=== PATIENT | male | born 2000 | race Caucasian/White ===

== ENCOUNTER 2018-06-20 11:52 | Emergency (ER) | payer OTHER ==
[2018-06-20] MEDS ORDERED: SODIUM CHLORIDE 0.9% 1,000 ML IV STA (12:52)
--- NOTE | 2018-06-20 13:18 | ED ---
Seizure HPI - General Chief Complaint: Seizure Stated Complaint: seizure Time Seen by Provider: 06/20/18 12:03 Source: patient, RN notes reviewed, old records reviewed Mode of arrival: EMS Limitations: no limitations - History of Present Illness Initial Comments: 18-year-old male presents for in terms a status post seizure. He had a total tonic clonic seizure lasting 3 minutes earlier this morning. Did not have the exact time. Patient was seizure was witnessed by girlfriend. He has had history of seizure disorder he certainly had Keppra and Vimpat. Patient reports that he takes medication as prescribed. Patient has had no other symptoms including fevers or chills. He has not had a seizure in the past 6 months. Denies any specific symptoms besides mild headache at this time as well as body aches. Patient states that he has had no head trauma. He does state that he had a seizure while he was laying in bed. - Related Data Home Medications Medication Instructions Recorded Confirmed QUEtiapine [SEROquel] 200 mg PO BID 06/20/18 06/20/18 levETIRAcetam [Keppra] 1,500 mg PO DIRECTED 06/20/18 06/20/18 levETIRAcetam [Keppra] 750 mg PO DIRECTED 06/20/18 06/20/18 levETIRAcetam [levETIRAcetam ER] 1,500 mg PO DAILY 06/20/18 06/20/18 levETIRAcetam [levETIRAcetam ER] 750 mg PO HS 06/20/18 06/20/18 Allergies Allergy/AdvReac Type Severity Reaction Status Date / Time No Known Allergies Allergy Verified 06/20/18 12:11 Review of Systems ROS Statement: Those systems with pertinent positive or pertinent negative responses have been documented in the HPI. ROS Other: All systems not noted in ROS Statement are negative. Past Medical History Past Medical History: No Reported History, Seizure Disorder History of Any Multi-Drug Resistant Organisms: None Reported Past Surgical History: No Surgical Hx Reported Past Psychological History: No Psychological Hx Reported Smoking Status: Never smoker Past Alcohol Use History: None Reported Past Drug Use History: Marijuana General Exam - General Exam Comments Initial Comments: well-appearing alert and oriented 18-year-old male. no acute distress. Limitations: no limitations General appearance: alert, in no apparent distress Head exam: Present: atraumatic Eye exam: Present: normal appearance, PERRL, EOMI. Absent: scleral icterus, conjunctival injection, periorbital swelling ENT exam: Present: normal exam, mucous membranes moist Neck exam: Present: normal inspection. Absent: tenderness, meningismus, lymphadenopathy Respiratory exam: Present: normal lung sounds bilaterally. Absent: respiratory distress, wheezes, rales, rhonchi, stridor Cardiovascular Exam: Present: regular rate, normal rhythm, normal heart sounds. Absent: systolic murmur, diastolic murmur, rubs, gallop, clicks GI/Abdominal exam: Present: soft, normal bowel sounds. Absent: distended, tenderness, guarding, rebound, rigid Extremities exam: Present: normal inspection, full ROM, normal capillary refill. Absent: tenderness, pedal edema, joint swelling, calf tenderness Back exam: Present: normal inspection Neurological exam: Present: alert, oriented X3, CN II-XII intact Psychiatric exam: Present: normal affect, normal mood Course Vital Signs 06/20/18 06/20/18 06/20/18 11:58 13:59 15:20 Temperature 97.3 F L 98 F Pulse Rate 94 87 79 Respiratory 18 18 16 Rate Blood Pressure 124/70 127/67 126/79 O2 Sat by Pulse 94 L 98 98 Oximetry 06/20/18 15:34 Temperature 98 F Pulse Rate 79 Respiratory 16 Rate Blood Pressure 126/79 O2 Sat by Pulse 98 Oximetry Medical Decision Making - Medical Decision Making 1-year-old male with history of seizures presents today with chief complaint of seizure-like activity this morning. Tonic-clonic seizure lasting 3 minutes. Patient denies the emergency department somewhat postictal. However this is been 5-6 hours after the actual certain seizure. Labwork was reviewed and unremarkable. Urine analysis is positive for TCAs, Patient doesn't that he is currently on amitriptyline. He also is positive for marijuana. For Patient and marijuana laced with other things could be causing 2. Patient advised that he cannot drive for 6 months post seizure. Advise close follow-up with neurologist. He may need to have his medications adjusted. I did order a Keppra level however this is an outpatient lab. Patient CT brain was normal. This time he otherwise feels well and his been eating and drinking emergency department. He likes be discharged home. Discussed return parameters. All questions answered return parameters were discussed. - Lab Data Result diagrams: 06/20/18 13:30 06/20/18 13:30 Lab Results 06/20/18 06/20/18 06/20/18 Range/Units 13:30 13:30 13:30 WBC 8.2 (4.0-11.0) k/uL RBC 5.67 (4.30-5.90) m/uL Hgb 16.3 (13.0-17.5) gm/dL Hct 48.5 (39.0-53.0) % MCV 85.6 (80.0-100.0) fL MCH 28.8 (25.0-35.0) pg MCHC 33.7 (31.0-37.0) g/dL RDW 12.5 (11.5-15.5) % Plt Count 208 (150-450) k/uL Neutrophils % 77 % Lymphocytes % 15 % Monocytes % 5 % Eosinophils % 2 % Basophils % 0 % Neutrophils # 6.3 (1.3-7.7) k/uL Lymphocytes # 1.3 (1.0-4.8) k/uL Monocytes # 0.4 (0-1.0) k/uL Eosinophils # 0.2 (0-0.7) k/uL Basophils # 0.0 (0-0.2) k/uL Sodium 139 (137-145) mmol/L Potassium 4.7 (3.5-5.1) mmol/L Chloride 109 H (98-107) mmol/L Carbon Dioxide 22 (22-30) mmol/L Anion Gap 8 mmol/L BUN 11 (9-20) mg/dL Creatinine 0.76 (0.66-1.25) mg/dL Est GFR (CKD-EPI)AfAm >90 (>60 ml/min/1.73 sqM) Est GFR (CKD-EPI)NonAf >90 (>60 ml/min/1.73 sqM) Glucose 85 (74-99) mg/dL Calcium 9.1 (8.4-10.2) mg/dL Total Bilirubin 0.5 (0.2-1.3) mg/dL AST 23 (17-59) U/L ALT 35 (21-72) U/L Alkaline Phosphatase 122 (38-126) U/L Total Protein 7.2 (6.3-8.2) g/dL Albumin 4.4 (3.5-5.0) g/dL Urine Opiates Screen Not Detected (NotDetected) Ur Oxycodone Screen Not Detected (NotDetected) Urine Methadone Screen Not Detected (NotDetected) Ur Propoxyphene Screen Not Detected (NotDetected) Ur Barbiturates Screen Not Detected (NotDetected) U Tricyclic Antidepress Detected H (NotDetected) Levetiracetam (3.0-60.0) ug/mL Ur Phencyclidine Scrn Not Detected (NotDetected) Ur Amphetamines Screen Not Detected (NotDetected) U Methamphetamines Scrn Not Detected (NotDetected) U Benzodiazepines Scrn Not Detected (NotDetected) Urine Cocaine Screen Not Detected (NotDetected) U Marijuana (THC) Screen Detected H (NotDetected) 06/20/18 Range/Units 13:30 WBC (4.0-11.0) k/uL RBC (4.30-5.90) m/uL Hgb (13.0-17.5) gm/dL Hct (39.0-53.0) % MCV (80.0-100.0) fL MCH (25.0-35.0) pg MCHC (31.0-37.0) g/dL RDW (11.5-15.5) % Plt Count (150-450) k/uL Neutrophils % % Lymphocytes % % Monocytes % % Eosinophils % % Basophils % % Neutrophils # (1.3-7.7) k/uL Lymphocytes # (1.0-4.8) k/uL Monocytes # (0-1.0) k/uL Eosinophils # (0-0.7) k/uL Basophils # (0-0.2) k/uL Sodium (137-145) mmol/L Potassium (3.5-5.1) mmol/L Chloride (98-107) mmol/L Carbon Dioxide (22-30) mmol/L Anion Gap mmol/L BUN (9-20) mg/dL Creatinine (0.66-1.25) mg/dL Est GFR (CKD-EPI)AfAm (>60 ml/min/1.73 sqM) Est GFR (CKD-EPI)NonAf (>60 ml/min/1.73 sqM) Glucose (74-99) mg/dL Calcium (8.4-10.2) mg/dL Total Bilirubin (0.2-1.3) mg/dL AST (17-59) U/L ALT (21-72) U/L Alkaline Phosphatase (38-126) U/L Total Protein (6.3-8.2) g/dL Albumin (3.5-5.0) g/dL Urine Opiates Screen (NotDetected) Ur Oxycodone Screen (NotDetected) Urine Methadone Screen (NotDetected) Ur Propoxyphene Screen (NotDetected) Ur Barbiturates Screen (NotDetected) U Tricyclic Antidepress (NotDetected) Levetiracetam <1.0 (3.0-60.0) ug/mL Ur Phencyclidine Scrn (NotDetected) Ur Amphetamines Screen (NotDetected) U Methamphetamines Scrn (NotDetected) U Benzodiazepines Scrn (NotDetected) Urine Cocaine Screen (NotDetected) U Marijuana (THC) Screen (NotDetected) 06/20/18 14:07 EKG is 3250 normal sinus rhythm normal EKG. Ventricular rate of 75 beats were minute. Daniela's 156 ms. QRS duration 94 4 ms. QT QTc is 370/422. - Radiology Data Radiology results: report reviewed No acute intracranial hemorrhage, mass effect, or midline shift seen. No significant change from prior. Disposition Clinical Impression: Seizure Disposition: HOME SELF-CARE Condition: Good Instructions: Recurrent Seizures in Adults (ED) Additional Instructions: Patient advised to continue medications. You need to follow-up with your neurologist. Patient should not drive for 6 months until seizure free. Return to emergency department if any alarming signs or symptoms occur. Is patient prescribed a controlled substance at d/c from ED?: No Referrals: Noam Shannon MD [Primary Care Provider] - 1-2 days Shena Cole MD [STAFF PHYSICIAN] - 1-2 days Time of Disposition: 15:09
[2018-06-20] MEDS ORDERED: ACETAMINOPHEN TAB 500 MG TAB PO STA (13:20)
[2018-06-20] MEDS ORDERED: SODIUM CHLORIDE 0.9% 1,000 ML IV SCH (13:30)
[2018-06-20 14:02] LABS: Amphetamine Screen,Urine Not Detected (NotDetected); Barbiturate Screen,Urine Not Detected (NotDetected); Benzodiazepines Screen,Urine Not Detected (NotDetected); Cocaine Screen,Urine Not Detected (NotDetected); Methadone Screen, Urine Not Detected (NotDetected); Opiate Screen,Urine Not Detected (NotDetected); Oxycodone Screen, Urine Not Detected (NotDetected); Phencyclidine Screen,Urine Not Detected (NotDetected); Tricyclic Antidepressant,Urine Detected (NotDetected); Urn Cannabinoid Scrn Detected (NotDetected)
[2018-06-20 14:12] LABS: ALT 35 U/L (21-72); AST 23 U/L (17-59); Albumin 4.4 g/dL (3.5-5.0); Alkaline Phosphatase 122 U/L (38-126); Anion Gap 8 mmol/L; Blood Urea Nitrogen 11 mg/dL (9-20); Calcium 9.1 mg/dL (8.4-10.2); Carbon Dioxide 22 mmol/L (22-30); Chloride 109 mmol/L (98-107); Glucose 85 mg/dL (74-99); Potassium 4.7 mmol/L (3.5-5.1); Sodium 139 mmol/L (137-145); Total Bilirubin 0.5 mg/dL (0.2-1.3); Total Protein 7.2 g/dL (6.3-8.2)
[2018-06-20 14:15] LABS: Basophils % (A) 0 %; Eosinophils # (A) 0.2 k/uL (0-0.7); Eosinophils % (A) 2 %; HCT 48.5 % (39.0-53.0); HGB 16.3 gm/dL (13.0-17.5); Lymphocytes # (A) 1.3 k/uL (1.0-4.8); Lymphocytes % (A) 15 %; MCH 28.8 pg (25.0-35.0); MCHC 33.7 g/dL (31.0-37.0); MCV 85.6 fL (80.0-100.0); Mean Platelet Volume 8.5; Monocytes # (A) 0.4 k/uL (0-1.0); Monocytes % (A) 5 %; Neutrophils # (A) 6.3 k/uL (1.3-7.7); Neutrophils % (A) 77 %; Platelet Count 208 k/uL (150-450); RBC 5.67 m/uL (4.30-5.90); RDW 12.5 % (11.5-15.5); WBC 8.2 k/uL (4.0-11.0)
--- NOTE | 2018-06-20 14:49 | CT ---
EXAMINATION TYPE: CT brain wo con DATE OF EXAM: 06/20/2018 COMPARISON: CT brain May 09, 2016 HISTORY: Seizure today, hx of seizures CT DLP: 1150 mGycm. Automated Exposure Control for Dose Reduction was Utilized. TECHNIQUE: CT scan of the head is performed without contrast. FINDINGS: There is no acute intracranial hemorrhage, mass effect, or midline shift identified. The ventricles and sulci are within normal limits in size. The globes are intact and the visualized sin uses are clear. IMPRESSION: No acute intracranial hemorrhage, mass effect, or midline shift is seen. No significant change from prior.
[2018-06-20 15:21] VITALS: BP 126/79; PULSE 79; RESP 16; TEMP 98
== END 2018-06-20 15:34 | disposition home or self-care (01) ==
LOC: EC 11:52
DX: G40.909 Epilepsy, unspecified, not intractable, without status epilepticus (principal); R51 Headache; Z79.899 Other long term (current) drug therapy
CPT/HCPCS: 36415; 70450; 80053; 80177; 80306; 85025; 93005; 96360; 96361; 99285

== ENCOUNTER 2018-12-18 11:38 | Emergency (ER) | payer OTHER ==
[2018-12-18 11:43] VITALS: BP 134/88; PULSE 72; RESP 18; TEMP 99
[2018-12-18] MEDS ORDERED: ACETAMINOPHEN TAB 500 MG TAB PO STA (12:15)
--- NOTE | 2018-12-18 12:20 | ED ---
General Adult HPI - General Chief complaint: ENT Stated complaint: ENT Time Seen by Provider: 12/18/18 12:03 Source: patient, RN notes reviewed Mode of arrival: ambulatory Limitations: no limitations - History of Present Illness Initial comments: Patient is a 18-year-old male who presents the emergency department with complaint of sore throat for 2 weeks. He denies taking anything for pain today , but would like something now. Admits to runny nose and congestion. Patient denies any recent fever, chills, shortness of breath, chest pain, back pain, abdominal pain, nausea or vomiting, numbness or tingling, headaches or visual changes, or any other complaints. - Related Data Home Medications Medication Instructions Recorded Confirmed levETIRAcetam [levETIRAcetam ER] 1,500 mg PO BID 06/20/18 12/18/18 Previous Rx's Medication Instructions Recorded Benzocaine/Menthol Lozeng [Cepacol 1 each MUCOUS MEM Q6HR PRN #28 12/18/18 lozenge] lozenge Allergies Allergy/AdvReac Type Severity Reaction Status Date / Time No Known Allergies Allergy Verified 12/18/18 12:03 Review of Systems ROS Statement: Those systems with pertinent positive or pertinent negative responses have been documented in the HPI. ROS Other: All systems not noted in ROS Statement are negative. Past Medical History Past Medical History: Seizure Disorder History of Any Multi-Drug Resistant Organisms: None Reported Past Surgical History: No Surgical Hx Reported Past Psychological History: Bipolar Smoking Status: Never smoker Past Alcohol Use History: None Reported Past Drug Use History: Marijuana General Exam Limitations: no limitations General appearance: alert, in no apparent distress Eye exam: Present: normal appearance, PERRL ENT exam: Present: normal external ear exam, other (Oropharynx mildly erythematous, but otherwise normal.) Neck exam: Present: normal inspection, full ROM, lymphadenopathy. Absent: tenderness Respiratory exam: Present: normal lung sounds bilaterally. Absent: wheezes, rales, rhonchi Cardiovascular Exam: Present: regular rate, normal rhythm Neurological exam: Present: alert, oriented X3 Skin exam: Present: warm, dry Course Vital Signs 12/18/18 11:41 Temperature 99 F Pulse Rate 72 Respiratory 18 Rate Blood Pressure 134/88 O2 Sat by Pulse 98 Oximetry Medical Decision Making - Medical Decision Making Ordered Tylenol. Influenza A and B are negative. Rapid strep is negative. Will prescribe Cepacol lozenge. Case discussed in detail with attending physician Dr. Sanchez. - Lab Data Lab Results 12/18/18 Range/Units 12:40 Influenza Type A RNA Not Detected (Not Detectd) Influenza Type B (PCR) Not Detected (Not Detectd) Group A Strep Rapid Negative (Negative) Disposition Clinical Impression: Pharyngitis Disposition: HOME SELF-CARE Condition: Good Instructions (If sedation given, give patient instructions): Pharyngitis (ED) Additional Instructions: Follow-up with your PCP in 1-2 days. Return to the emergency department if your symptoms worsen or other concerns. Prescriptions: Benzocaine/Menthol Lozeng [Cepacol lozenge] 1 each MUCOUS MEM Q6HR PRN #28 lozenge PRN Reason: Sore Throat Is patient prescribed a controlled substance at d/c from ED?: No Referrals: Noam Shannon MD [Primary Care Provider] - 1-2 days Time of Disposition: 13:28
== END 2018-12-18 13:49 | disposition home or self-care (01) ==
LOC: EC 11:38
DX: J02.9 Acute pharyngitis, unspecified (principal); G40.909 Epilepsy, unspecified, not intractable, without status epilepticus; Z79.899 Other long term (current) drug therapy
CPT/HCPCS: 87081; 87430; 87502; 99283

== ENCOUNTER 2018-12-26 09:14 | Emergency (ER) | payer OTHER ==
[2018-12-26 09:22] VITALS: BP 124/84; TEMP 97.4
[2018-12-26 09:46] VITALS: PULSE 77; RESP 18
[2018-12-26] MEDS ORDERED: PENICILLIN VK 500MG STARTER 4 TAB BTL PO STA (09:56)
[2018-12-26] MEDS ORDERED: Acetaminophen-Codeine 300-30mg TAB PO STA (09:56)
--- NOTE | 2018-12-26 10:00 | ED ---
General Adult HPI - General Chief complaint: Dental/Oral Stated complaint: Dental pain Time Seen by Provider: 12/26/18 09:38 Source: patient, RN notes reviewed Mode of arrival: ambulatory Limitations: no limitations - History of Present Illness Initial comments: 18-year-old male presents to the emergency department for a chief complaint of dental pain times one day. Patient states he woke up this morning with this. He states the pain is in the left upper jaw. Patient states he has been seen at the dental clinic for similar issues but they always want to pull his teeth so he does not like to go there. Patient denies fevers or chills. Patient denies nausea or vomiting. He denies any swelling under the tongue. He denies any drainage from the tooth. Patient has no other complaints at this time including shortness of breath, chest pain, abdominal pain, nausea or vomiting, headache, or visual changes. - Related Data Home Medications Medication Instructions Recorded Confirmed levETIRAcetam [levETIRAcetam ER] 1,500 mg PO BID 06/20/18 12/26/18 Previous Rx's Medication Instructions Recorded Penicillin V Potassium [Pen Vee K] 500 mg PO Q6H 10 Days tablet 12/26/18 Allergies Allergy/AdvReac Type Severity Reaction Status Date / Time No Known Allergies Allergy Verified 12/26/18 10:01 Review of Systems ROS Statement: Those systems with pertinent positive or pertinent negative responses have been documented in the HPI. ROS Other: All systems not noted in ROS Statement are negative. Past Medical History Past Medical History: Seizure Disorder History of Any Multi-Drug Resistant Organisms: None Reported Past Surgical History: No Surgical Hx Reported Past Psychological History: No Psychological Hx Reported, Bipolar Smoking Status: Never smoker Past Alcohol Use History: Occasional Past Drug Use History: Marijuana General Exam Limitations: no limitations General appearance: alert, in no apparent distress Head exam: Present: atraumatic, normocephalic, normal inspection Eye exam: Present: normal appearance, PERRL, EOMI. Absent: scleral icterus, conjunctival injection, periorbital swelling ENT exam: Present: normal exam, mucous membranes moist, TM's normal bilaterally , normal external ear exam. Absent: normal oropharynx (tenderness noted to left upper posterior molar. No abscess noted. No edema or erythema noted to L side of face) Neck exam: Present: normal inspection, full ROM. Absent: tenderness, meningismus, lymphadenopathy Respiratory exam: Present: normal lung sounds bilaterally. Absent: respiratory distress, wheezes, rales, rhonchi, stridor Cardiovascular Exam: Present: regular rate, normal rhythm, normal heart sounds. Absent: systolic murmur, diastolic murmur, rubs, gallop, clicks Neurological exam: Present: alert, oriented X3, CN II-XII intact Psychiatric exam: Present: normal affect, normal mood Course Vital Signs 12/26/18 09:20 Temperature 97.4 F L Pulse Rate 77 Respiratory 18 Rate Blood Pressure 124/84 O2 Sat by Pulse 97 Oximetry Medical Decision Making - Medical Decision Making 18-year-old male presents to the emergency department for a chief complaint of left-sided dental pain since this morning. Patient has tenderness to the upper left exterior molar. No abscess visualized or palpated along the gumline. No swelling under the tongue. No difficulty swallowing or rigidity of the neck. Patient has been to dental clinic previously. At this time patient given Tylenol 3, he has not driving. Educated to use ice and Motrin and Tylenol at home for pain. Patient given penicillin or antibiotics. Discussed following up with dental clinic [facility]. Discussed returning here if patient has any worsening symptoms. Disposition Clinical Impression: Pain, dental Disposition: HOME SELF-CARE Condition: Good Instructions (If sedation given, give patient instructions): Toothache (ED) Additional Instructions: Please take antibiotic as directed. Please follow-up with primary care in 1-2 days. Follow-up with dental clinic as soon as possible. Return here to the emergency department if you have any worsening symptoms. [facility] [address] [facility]bolled[facility] Prescriptions: Penicillin V Potassium [Pen Vee K] 500 mg PO Q6H 10 Days tablet Is patient prescribed a controlled substance at d/c from ED?: No Referrals: Noam Shannon MD [Primary Care Provider] - 1-2 days Time of Disposition: 10:10
== END 2018-12-26 10:35 | disposition home or self-care (01) ==
LOC: EC 09:14
DX: K08.89 Other specified disorders of teeth and supporting structures (principal); R68.84 Jaw pain; G40.909 Epilepsy, unspecified, not intractable, without status epilepticus; Z79.899 Other long term (current) drug therapy
CPT/HCPCS: 99282

== ENCOUNTER 2019-04-22 14:38 | Emergency (ER) | payer OTHER ==
[2019-04-22 14:44] VITALS: BP 154/89; PULSE 75; RESP 16; TEMP 98.2
--- NOTE | 2019-04-22 15:15 | ED ---
ENT HPI - General Chief complaint: ENT Stated complaint: ringing in ear Time Seen by Provider: 04/22/19 14:49 Source: patient Mode of arrival: ambulatory Limitations: no limitations - History of Present Illness Initial comments: Patient is a 18-year-old male presenting to the emergency Department with complaints of ringing in his left ear for the last 30 minutes. Patient states he was playing video games when the ringing started. Patient denies trauma, numbness, tingling, ear pain, fevers, chills. Patient states he has never had this happen before. No other pertinent medical history. He has no other complaints at this time. - Related Data Home Medications Medication Instructions Recorded Confirmed levETIRAcetam [levETIRAcetam ER] 1,500 mg PO BID 06/20/18 12/26/18 Previous Rx's Medication Instructions Recorded Penicillin V Potassium [Pen Vee K] 500 mg PO Q6H 10 Days tablet 12/26/18 Allergies Allergy/AdvReac Type Severity Reaction Status Date / Time No Known Allergies Allergy Verified 04/22/19 14:44 Review of Systems ROS Statement: Those systems with pertinent positive or pertinent negative responses have been documented in the HPI. ROS Other: All systems not noted in ROS Statement are negative. Past Medical History Past Medical History: Seizure Disorder History of Any Multi-Drug Resistant Organisms: None Reported Past Surgical History: No Surgical Hx Reported Past Psychological History: No Psychological Hx Reported, Bipolar Smoking Status: Never smoker Past Alcohol Use History: Occasional Past Drug Use History: Marijuana General Exam - General Exam Comments Initial Comments: GENERAL: Well-appearing, well-nourished and in no acute distress. HEAD: Atraumatic, normocephalic. EYES: Pupils equal round and reactive to light, extraocular movements intact, sclera anicteric, conjunctiva are normal. ENT: Right EAC and TM normal. Left EAC normal, TM has very small hole in the 8 o'clock position. No erythema present. Nares patent, oropharynx clear without exudates. Moist mucous membranes. NECK: Normal range of motion, supple without lymphadenopathy or JVD. LUNGS: Breath sounds clear to auscultation bilaterally and equal. No wheezes rales or rhonchi. HEART: Regular rate and rhythm without murmurs, rubs or gallops. ABDOMEN: Soft, nontender, normoactive bowel sounds. No guarding, no rebound. No masses appreciated. : Deferred EXTREMITIES: Normal range of motion, no pitting or edema. No clubbing or cyanosis. NEUROLOGICAL: Cranial nerves II through XII grossly intact. Normal speech, normal gait. PSYCH: Normal mood, normal affect. SKIN: Warm, Dry, normal turgor, no rashes or lesions noted. Limitations: no limitations Course Vital Signs 04/22/19 14:42 Temperature 98.2 F Pulse Rate 75 Respiratory 16 Rate Blood Pressure 154/89 O2 Sat by Pulse 98 Oximetry Medical Decision Making - Medical Decision Making Patient is a 18-year-old male presenting to the ER with complaints of ringing in his left ear 30 minutes. Patient denies any trauma, fever, chills, ear pain, numbness, tingling. Patient has no other complaints. Patient has no pertinent past medical history. On exam patient has a very small hole in his left TM. No signs of infection present. Consultation to try Claritin and also gave ENT follow-up if symptoms continue. Patient will be discharged home. Disposition Clinical Impression: Tinnitus of left ear Disposition: HOME SELF-CARE Condition: Stable Instructions (If sedation given, give patient instructions): Tinnitus (ED) Additional Instructions: Please return to the Emergency Department if symptoms worsen or any other concerns. Follow-up with ENT if symptoms continue. Is patient prescribed a controlled substance at d/c from ED?: No Referrals: Noam Shannon MD [Primary Care Provider] - 1-2 days Larry Willams MD [STAFF PHYSICIAN] - 1-2 days
== END 2019-04-22 15:25 | disposition home or self-care (01) ==
LOC: EC 14:38
DX: H72.92 Unspecified perforation of tympanic membrane, left ear (principal); G40.909 Epilepsy, unspecified, not intractable, without status epilepticus; Z79.899 Other long term (current) drug therapy
CPT/HCPCS: 99283

== ENCOUNTER 2019-07-04 | Emergency (ER) | payer OTHER ==
--- NOTE | 2019-07-04 15:33 | ED ---
General Adult HPI - General Chief complaint: Psychiatric Symptoms Stated complaint: Psych Eval - Suicidal Time Seen by Provider: 07/04/19 14:40 Source: patient, RN notes reviewed Mode of arrival: ambulatory Limitations: no limitations - History of Present Illness Initial comments: This is a 19-year-old male who presents emergency department stating that he scratched himself today with a knife and states that he thinks he might of been suicidal at the time he really doesn't remember because he can't his own out. Patient denies any drug or alcohol use. Patient states once many years ago he took a bunch of Ambien pills did not come into the emergency department that time. Patient denies any physical complaints today. Patient states currently he is very depressed and doesn't care if he lives or dies but is not sure if he suicidal. - Related Data Home Medications Medication Instructions Recorded Confirmed QUEtiapine [SEROquel] 100 mg PO HS PRN 07/04/19 07/04/19 Allergies Allergy/AdvReac Type Severity Reaction Status Date / Time No Known Allergies Allergy Verified 07/04/19 15:30 Review of Systems ROS Statement: Those systems with pertinent positive or pertinent negative responses have been documented in the HPI. ROS Other: All systems not noted in ROS Statement are negative. Past Medical History Past Medical History: Seizure Disorder History of Any Multi-Drug Resistant Organisms: None Reported Past Surgical History: No Surgical Hx Reported Past Psychological History: No Psychological Hx Reported, Bipolar Smoking Status: Never smoker Past Alcohol Use History: Occasional Past Drug Use History: Marijuana General Exam - General Exam Comments Initial Comments: GENERAL: Patient is well-developed and well-nourished. Patient is nontoxic and well- hydrated and is in no acute distress. ENT: Neck is soft and supple. No significant lymphadenopathy is noted. Oropharynx is clear. Moist mucous membranes. Neck has full range of motion without eliciting any pain. EYES: The sclera were anicteric and conjunctiva were pink and moist. Extraocular movements were intact and pupils were equal round and reactive to light. Eyelids were unremarkable. PULMONARY: Unlabored respirations. Good breath sounds bilaterally. No audible rales rhonchi or wheezing was noted. CARDIOVASCULAR: There is a regular rate and rhythm without any murmurs gallops or rubs. ABDOMEN: Soft and nontender with normal bowel sounds. SKIN: Skin is clear with no lesions or rashes and otherwise unremarkable. NEUROLOGIC: Patient is alert and oriented x3. Cranial nerves II through XII are grossly intact. Motor and sensory are also intact. Normal speech, volume and content. Symmetrical smile. MUSCULOSKELETAL: Normal extremities with adequate strength and full range of motion. No lower extremity swelling or edema. No calf tenderness. LYMPHATICS: No significant lymphadenopathy is noted PSYCHIATRIC: Patient states he is very depressed. But states he doesn't know if he is suicidal or not. Patient states earlier he is not sure if he was suicidal when he cut himself he just was frustrated and he felt as though cutting himself is something he had to do. Limitations: no limitations Course Vital Signs 07/04/19 14:40 Temperature 98.1 F Pulse Rate 76 Respiratory 18 Rate Blood Pressure 133/90 O2 Sat by Pulse 97 Oximetry Disposition Clinical Impression: Situational depression Disposition: HOME SELF-CARE Condition: Good Instructions (If sedation given, give patient instructions): Depression (ED) Is patient prescribed a controlled substance at d/c from ED?: No Referrals: Noam Shannon MD [Primary Care Provider] - 1-2 days Time of Disposition: 16:40
== END 2019-07-04 17:33 | disposition home or self-care (01) ==
DX: F43.21 Adjustment disorder with depressed mood (principal)
CPT/HCPCS: 82075; 99285

== ENCOUNTER 2024-01-31 12:43 | Emergency (ER) | payer OTHER ==
--- NOTE | 2024-01-31 13:37 | ED ---
General Adult HPI - General Chief complaint: Upper Respiratory Infection Stated complaint: abd pain/cough Time Seen by Provider: 01/31/24 12:57 Source: patient Mode of arrival: ambulatory Limitations: no limitations - History of Present Illness Initial comments: Dictation was produced using [employer] dictation software. please excuse any grammatical, word or spelling errors. Chief Complaint: 23-year-old male presents emergency department with 4 days of runny nose, facial and nasal congestion and cough History of Present Illness: Patient 23-year-old male with no significant past medical history. He states that he has a history of seizure disorder but is not takes any seizure medications. He smokes marijuana. Last 4 days has been having nasal congestion, runny nose and mildly productive cough. Denies any fever chills or night sweats. The ROS documented in this emergency department record has been reviewed and confirmed by me. Those systems with pertinent positive or negative responses have been documented in the HPI. All other systems are other negative and/or noncontributory. - Related Data Home Medications Medication Instructions Recorded Confirmed QUEtiapine [SEROquel] 100 mg PO HS PRN 07/04/19 07/04/19 Previous Rx's Medication Instructions Recorded Amoxic-Pot Clav 875-125Mg 1 tab PO Q12HR 10 Days #20 tab 01/31/24 [Augmentin 875-125] Allergies Allergy/AdvReac Type Severity Reaction Status Date / Time No Known Allergies Allergy Verified 07/04/19 15:30 Review of Systems ROS Statement: Those systems with pertinent positive or pertinent negative responses have been documented in the HPI. ROS Other: All systems not noted in ROS Statement are negative. Past Medical History Past Medical History: Seizure Disorder History of Any Multi-Drug Resistant Organisms: None Reported Past Surgical History: No Surgical Hx Reported Past Psychological History: No Psychological Hx Reported, Bipolar Smoking Status: Vaper Past Alcohol Use History: Occasional Past Drug Use History: Marijuana General Exam - General Exam Comments Initial Comments: General: Well-appearing, nontoxic, no acute distress. Head: Normocephalic, atraumatic Eyes: PERRLA, EOMI ENT: Airway patent Chest: Nonlabored breathing, lungs clear to auscultation bilaterally Skin: No visual rash, normal skin tone Neuro: Alert and oriented 3 Musculoskeletal: No gross abnormalities Limitations: no limitations Course Vital Signs 01/31/24 01/31/24 12:55 13:38 Temperature 98.2 F 98.1 F Pulse Rate 83 82 Respiratory 16 18 Rate Blood Pressure 129/84 126/76 O2 Sat by Pulse 98 97 Oximetry Medical Decision Making - Medical Decision Making Was pt. sent in by a medical professional or institution (, [facility], CRAFT ARTIST, urgent care, hospital, or fci...) When possible be specific @ -No Did you speak to anyone other than the patient for history (EMS, parent, family, police, friend...)? What history was obtained from this source @ -No Did you review nursing and triage notes (agree or disagree)? Why? @ -I reviewed and agree with nursing and triage notes Were old charts reviewed (outside hosp., previous admission, EMS record, old EKG, old radiological studies, urgent care reports/EKG's, fci records)? Report findings @ -No old charts were reviewed Differential Diagnosis (chest pain, altered mental status, abdominal pain women, abdominal pain men, vaginal bleeding, musculoskeletal, weakness, fever, dyspnea, syncope, headache, dizziness, GI bleed, back pain, seizure, CVA, palpatations, mental health)? @ -Not applicable EKG interpreted by me (3pts min.). @ -None done X-rays interpreted by me (1pt min.). @ -Chest x-ray shows no acute processes CT interpreted by me (1pt min.). @ -None done U/S interpreted by me (1pt. min.). @ -None done What testing was considered but not performed or refused? (CT, X-rays, U/S, labs)? Why? @ -None What meds were considered but not given or refused? Why? @ -None Did you discuss the management of the patient with other professionals (professionals i.e. [facility] Raya, CRAFT ARTIST, lab, RT, psych nurse, manager social responsibility, csm consultant, teacher, traffic police officer, special education case manager)? Give summary @ -No Was smoking cessation discussed for >3mins.? @ -No Was critical care preformed (if so, how long)? @ -No Were there social determinants of health that impacted care today? How? (Homelessness, low income, unemployed, alcoholism, drug addiction, transportation, low edu. Level, literacy, decrease access to med. care, retirement, rehab)? @ -No Was there de-escalation of care discussed even if they declined (Discuss DNR or withdrawal of care, Hospice)? DNR status @ -No What co-morbidities impacted this encounter? (DM, HTN, Smoking, COPD, CAD, Cancer, CVA, ARF, Chemo, Hep., AIDS, mental health diagnosis, sleep apnea, morbid obesity)? @ -None Was patient admitted / discharged? Hospital course, mention meds given and route, prescriptions, significant lab abnormalities, going to OR and other pertinent info. @ -23-year-old male presents emergency department 4 days of symptoms suspicious for sinusitis. Vital signs upon arrival are within acceptable limits. Patient well-appearing at the bedside. Viral testing is negative. Chest x-ray is nonacute. Patient given a prescription for antibiotics to wait for 3 days to see if his symptoms improve otherwise he is advised to take these antibiotics. Undiagnosed new problem with uncertain prognosis? @ -No Drug Therapy requiring intensive monitoring for toxicity (Heparin, Nitro, Insulin, Cardizem)? @ -No Were any procedures done? @ -No Diagnosis/symptom? Acute, or Chronic, or Acute on Chronic? Uncomplicated (without systemic symptoms) or Complicated (systemic symptoms)? @ -Sinusitis Side effects of treatment? @ -No Exacerbation, Progression, or Severe Exacerbation? @ -No Poses a threat to life or bodily function? How? (Chest pain, [place], [place], pneumonia, PE, COPD, DKA, ARF, appy, cholecystitis, CVA, Diverticulitis, Homicidal, Suicidal, threat to staff... and all critical care pts) @ -No - Lab Data Lab Results 01/31/24 Range/Units 13:06 Influenza Type A (PCR) Not Detected (Not Detectd) Influenza Type B (PCR) Not Detected (Not Detectd) RSV (PCR) Not Detected (Not Detectd) SARS-CoV-2 (PCR) Not Detected (Not Detectd) Disposition Clinical Impression: Sinusitis Disposition: HOME SELF-CARE Condition: Good Instructions (If sedation given, give patient instructions): Rhinosinusitis (ED) Prescriptions: Amoxic-Pot Clav 875-125Mg [Augmentin 875-125] 1 tab PO Q12HR 10 Days #20 tab Is patient prescribed a controlled substance at d/c from ED?: No Referrals: Noam Shannon MD [Primary Care Provider] - 1-2 days Time of Disposition: 14:14
[2024-01-31 13:55] VITALS: RESP 18; TEMP 98.1
--- NOTE | 2024-01-31 14:06 | XR ---
EXAMINATION TYPE: XR chest 2V DATE OF EXAM: 01/31/2024 1:22 PM CLINICAL INDICATION:Male, 23 years old with history of cough; [facility] COMPARISON: Chest radiographs from 05/09/2016 TECHNIQUE: XR chest 2V Frontal and lateral views of the chest. FINDINGS: Lungs/Pleura: There is no evidence of pleural effusion, focal consolidation, or pneumothorax. Pulmonary vascularity: Unremarkable. Heart/mediastinum: Cardiomediastinal silhouette is unremarkable. Musculoskeletal: No acute osseous pathology. IMPRESSION: No acute cardiopulmonary disease/process.
[2024-01-31 14:33] VITALS: BP 126/70; PULSE 80
== END 2024-01-31 14:31 | disposition home or self-care (01) ==
LOC: EC 12:43
DX: J32.9 Chronic sinusitis, unspecified (principal); F17.290 Nicotine dependence, other tobacco product, uncomplicated; F12.90 Cannabis use, unspecified, uncomplicated
CPT/HCPCS: 71046; 87636; 99284